=== PATIENT | male | born 1985 | race Caucasian/White ===

== ENCOUNTER 2020-01-16 17:54 | Emergency (ER) | payer SELFPAY ==
[~2020-01-16] VITALS: Ht 177.8 cm; Wt 89.0 kg
[2020-01-16] MEDS ORDERED: OMEP20TA15 PO (18:02)
[2020-01-16] MEDS ORDERED: PROPOFOL 200MG/20ML VIAL IV ONE ×2 (20:15→22:15)
[2020-01-16] MEDS ORDERED: MORPHINE SULFATE 2 MG/ML CPJ (NOT FOR IM USE) IV ONE (23:00)
[2020-01-17 00:28] VITALS: BP 116/85
== END 2020-01-17 00:29 | disposition home or self-care (01) ==
LOC: ER 17:54
DX: S03.02XA Dislocation of jaw, left side, initial encounter (principal); X58.XXXA Exposure to other specified factors, initial encounter; Y93.89 Activity, other specified; Y92.89 Other specified places as the place of occurrence of the external cause; Y99.8 Other external cause status; K21.9 Gastro-esophageal reflux disease without esophagitis
CPT/HCPCS: 21480; 70486; 96374; 99152; 99285; J2270; J2704